=== PATIENT | male | born 1955 | race Caucasian/White ===

== ENCOUNTER 2019-03-12 07:15 | Day surgery (SDC) | payer OTHER ==
[2019-03-11 15:55] VITALS: BMI 29.5
[~2019-03-12 07:15] MED LIST: Fluorouracil 100 MG, Enoxaparin Sodium 25 MG, EPINEPHrine 0.3 MG in Ophthalmic Irrigati... IRR SCH
[2019-03-12] MEDS ORDERED: Phenylephrine 2.5% Ophth Soln 5 ML BOT ONE (07:34)
[2019-03-12] MEDS ORDERED: Cyclopentolate 1% Opth Drop 2 ML BOT ONE (07:34)
[2019-03-12] MEDS ORDERED: Midazolam HCl 2 mg/2 ml Vial ONE (09:39)
[2019-03-12] MEDS ORDERED: PROPOFOL 20 ML ONE (09:39)
[2019-03-12] MEDS ORDERED: Fentanyl 100 MCG/2 ML VIAL ONE (09:39)
--- NOTE | 2019-03-12 17:04 | OP ---
DATE OF PROCEDURE: 03/12/2019 PREOPERATIVE DIAGNOSIS: Rhegmatogenous retinal detachment, left eye. POSTOPERATIVE DIAGNOSIS: Rhegmatogenous retinal detachment, left eye. PROCEDURE PERFORMED: Pars plana vitrectomy, retinal detachment repair, left eye. ANESTHESIA: Local monitored anesthesia care. DESCRIPTION OF PROCEDURE: The patient was identified in the preoperative holding area. Appropriate informed consent for the planned surgical procedure on the left eye had been obtained. The patient was transported to the operative suite, where appropriate cardiopulmonary monitoring was established. Local anesthesia was obtained using retrobulbar-modified Van Lint lid block using 50:50 mixture of 4% lidocaine and 0.75% bupivacaine. The patient was prepped and draped in usual sterile manner for ophthalmic surgery. Left eye lid speculum was placed in the left eye. A 25-gauge trocar was placed through the conjunctiva and sclera superotemporally, inferotemporally, and supranasally. Infusion line was placed inferotemporally. Light pipe and vitreous cutter were inserted into the eye. Core vitrectomy was performed. Tear was found at the 2 o'clock position. Peripheral retinal tear was marked. Posterior drained retinotomy was created. Complete air-fluid exchange was performed with 10 minutes being left for fluid to drain posteriorly. A 360 laser was placed using Endolaser delivery device. A 28% sulfur hexafluoride gas was infused into the eye. Trocars were removed, and all 3 sclerotomies were suture closed with 6-0 plain gut suture. Retrobulbar Kenalog and subconjunctival Ancef were placed. Antibiotic ointment was placed and the eye was patched and shielded. The patient was positioned left side down. Advised to call for pain not relieved by Tylenol. Follow up appointment with Dr. Reveles. Job ID: [id number]
== END 2019-03-12 11:50 | disposition home or self-care (01) ==
LOC: SDC 07:15
PROVIDERS: ATTEND Ophthalmology Retina Specialist
PROC: 08T53ZZ Resection of Left Vitreous, Percutaneous Approach (ICD-10-PCS; principal; 2019-03-12)
PROC: 08QF3ZZ Repair Left Retina, Percutaneous Approach (ICD-10-PCS; principal; 2019-03-12)
DX: H33.002 Unspecified retinal detachment with retinal break, left eye (principal); Z79.84 Long term (current) use of oral hypoglycemic drugs; Z79.899 Other long term (current) drug therapy
CPT/HCPCS: 67025; J0171; J1650; J2250; J2704; J3010; J9190

== ENCOUNTER 2021-04-10 07:55 | Outpatient (CLI) | payer MEDICARE, OTHER ==
[2021-04-10 19:42] LABS: SARS-CoV-2 PCR by NAA Not Detected (NotDetected)
== END 2021-04-10 07:56 | disposition home or self-care (01) ==
LOC: LABBT 07:55
PROVIDERS: ATTEND Ophthalmology Retina Specialist
DX: Z01.812 Encounter for preprocedural laboratory examination (principal); H35.372 Puckering of macula, left eye; Z20.822 Contact with and (suspected) exposure to COVID-19
CPT/HCPCS: U0003; U0005

== ENCOUNTER 2021-04-13 06:47 | Day surgery (SDC) | payer MEDICARE, OTHER ==
[2021-04-13] MEDS ORDERED: Phenylephrine 2.5% Ophth Soln 5 ML BOT ONE (06:55)
[2021-04-13] MEDS ORDERED: Cyclopentolate 1% Opth Drop 2 ML BOT ONE (06:55)
[2021-04-13] MEDS ORDERED: Midazolam HCl 2 mg/2 ml Vial ONE (08:15)
[2021-04-13] MEDS ORDERED: Fentanyl 100 MCG/2 ML VIAL ONE (08:15)
[2021-04-13] MEDS ORDERED: PROPOFOL 20 ML ONE (08:15)
[2021-04-13] MEDS ORDERED: Triamcinolone 40 MG/ML VIAL ONE (08:26)
[2021-04-13] MEDS ORDERED: Maxitrol 0.1% Opth Oint 3.5 GM TUBE ONE (08:26)
[2021-04-13] MEDS ORDERED: CEFAZOLIN 1 GM VIAL ONE (08:26)
[2021-04-13] MEDS ORDERED: Bupivacaine PF 0.75% SDV 10 ML ONE (08:26)
[2021-04-13] MEDS ORDERED: PROPOFOL 200 MG/20 ML VIAL ONE (08:26)
[2021-04-13] MEDS ORDERED: Lidocaine 1% PF 5 ML VIAL ONE (08:26)
[2021-04-13] MEDS ORDERED: Lidocaine 4% PF 5 ML AMP ONE (08:26)
[2021-04-13] MEDS ORDERED: hydrALAZINE 20 MG/ML VIAL ONE (09:56)
== END 2021-04-13 10:00 | disposition home or self-care (01) ==
LOC: SDC 06:47
PROVIDERS: ATTEND Ophthalmology Retina Specialist
PROC: 08T53ZZ Resection of Left Vitreous, Percutaneous Approach (ICD-10-PCS; principal; 2021-04-13)
PROC: 08NF3ZZ Release Left Retina, Percutaneous Approach (ICD-10-PCS; 2021-04-13)
DX: H35.372 Puckering of macula, left eye (principal); Z79.899 Other long term (current) drug therapy
CPT/HCPCS: J0171; J0360; J0690; J1650; J2250; J2704; J3010; J3301; J3490; J9190

== ENCOUNTER 2021-06-22 | Day surgery (SDC) | payer MEDICARE, OTHER | END 2021-06-22 09:47 | disposition home or self-care (01) | PROC: 08T53ZZ Resection of Left Vitreous, Percutaneous Approach (ICD-10-PCS; principal; 2021-06-22) ==

== ENCOUNTER 2021-07-31 22:21 | Inpatient (IN) | payer MEDICARE, OTHER ==
[2021-08-01 02:23] VITALS: BMI 29.5
[2021-08-01] MEDS ORDERED: Morphine 4 MG/ML VIAL SLOW IVP PRN (04:19)
[2021-08-01] MEDS ORDERED: HumaLOG 300 UNITS/3 ML VIAL SC PRN ×2 (04:45)
[2021-08-01] MEDS ORDERED: Dextrose 50% Abboject 50 ML SYRINGE SLOW IVP PRN (04:45)
[2021-08-01] MEDS ORDERED: Dextrose 5% in Water 1,000 ML IV PRN (04:45)
[2021-08-01] MEDS ORDERED: Piperacillin/Tazobactam 3.375 GM in Sodium Chloride 0.9% 100 ML IVPB SCH (05:00)
[2021-08-01] MEDS: Morphine 4 MG/ML VIAL SLOW IVP PRN ×3 (05:23→16:46)
[2021-08-01] MEDS: Sodium Chloride 0.9% 1,000 ML IV SCH ×4 (05:24→20:19)
[2021-08-01 06:16] LABS: #Eosinphils 0.1 thou/uL (0.0-0.7); #Lymphocytes 1.2 thou/uL (1.20-3.40); #Monocytes 0.8 thou/uL (0.11-0.59); #Neutrophils 6.4 thou/uL (1.40-6.50); %Basophils 0.5 % (0.0-1.0); %Eosinophils 1.2 % (0.0-10.0); %Lymphocytes 14.3 % (21.0-51.0); %Monocytes 9.7 % (0.0-10.0); %Neutrophils 74.3 % (42.0-75.0); Hemoglobin 15.7 g/dL (14.0-18.0); Mean Corpuscular HGB CONC 34.5 g/dL (32.0-36.0); Mean Corpuscular Hemoglobin 30.3 pg (27.0-31.0); Mean Corpuscular Volume 87.9 fL (78.0-98.0); Mean Platelet Volume 7.7 fL (7.4-10.4); Platelet Count 171 thou/uL (130-400); Red Blood Cell (RBC) Count 5.19 mill/uL (4.70-6.10); White Blood Cell (WBC) Count 8.6 thou/uL (4.8-10.8)
[2021-08-01 06:24] LABS: INR-International Normal Ratio 1.1; Prothrombin Time 13.9 sec (12.0-14.7)
[2021-08-01 06:37] LABS: ALT (SGPT) 8 U/L (8-55); AST (SGOT) 12 U/L (5-34); Albumin 3.5 g/dL (3.4-4.8); Alkaline Phosphatase 67 U/L (40-110); Anion Gap 16 mmol/L (10-20); BUN (Urea Nitrogen) 15 mg/dL (8.4-25.7); Bilirubin, Total 2.5 mg/dL (0.2-1.2); Calc. Creatinine Clearance 70 mL/min (70-130); Calcium 8.1 mg/dL (7.8-10.44); Carbon Dioxide 21 mmol/L (23-31); Cardiac Risk 4.4 (Less than 4.5); Chloride 106 mmol/L (98-107); Cholesterol 122 mg/dl (< 200 Desired); Globulin 2.3 g/dL (2.4-3.5); Glucose 123 mg/dL (80-115); HDL Cholesterol 28 mg/dL (>60 Neg Risk); LDL Cholesterol, Calculated 69 mg/dL; Potassium 3.9 mmol/L (3.5-5.1); Protein, Total 5.8 g/dL (5.8-8.1); Sodium 139 mmol/L (136-145); Triglycerides 124 mg/dL (Less than 150)
[2021-08-01 06:38] LABS: Hemoglobin A1c 5.3 % (4.0-6.0)
[2021-08-01] MEDS ORDERED: Famotidine/PF 20 mg/2ml Vial SLOW IVP SCH (09:00)
[2021-08-01] MEDS: Piperacillin/Tazobactam 3.375 GM in Sodium Chloride 0.9% 100 ML IVPB SCH ×2 (14:19→21:03)
[2021-08-01] MEDS ORDERED: Sodium Chloride 0.9% 1,000 ML IV SCH (14:45)
[2021-08-01] MEDS ORDERED: Octreotide Acetate 1,250 MCG in Sodium Chloride 0.9% 250 ML 250 ML IVPB SCH (14:45)
[2021-08-01] MEDS ORDERED: cefOXitin Sodium/Dextrose,Iso 2 GM in Premix Bag 1 BAG IVPB SCH (16:00)
[2021-08-01] MEDS: hydrALAZINE 20 MG/ML VIAL SLOW IVP PRN (17:10)
[2021-08-01 17:50] LABS: #Eosinphils 0.1 thou/uL (0.0-0.7); #Lymphocytes 1.2 thou/uL (1.20-3.40); #Monocytes 0.9 thou/uL (0.11-0.59); #Neutrophils 6.4 thou/uL (1.40-6.50); %Basophils 0.2 % (0.0-1.0); %Eosinophils 1.2 % (0.0-10.0); %Lymphocytes 14.4 % (21.0-51.0); %Monocytes 10.7 % (0.0-10.0); %Neutrophils 73.5 % (42.0-75.0); Hemoglobin 15.1 g/dL (14.0-18.0); Mean Corpuscular HGB CONC 33.1 g/dL (32.0-36.0); Mean Corpuscular Hemoglobin 29.5 pg (27.0-31.0); Mean Platelet Volume 7.9 fL (7.4-10.4); Platelet Count 163 thou/uL (130-400); RBC Distribution Width 12.1 % (11.5-14.5); Red Blood Cell (RBC) Count 5.13 mill/uL (4.70-6.10); White Blood Cell (WBC) Count 8.6 thou/uL (4.8-10.8)
[2021-08-01] MEDS ORDERED: Sodium Chloride 0.9% (PF) 10 ML VIAL FS PRN (18:00)
[2021-08-01] MEDS ORDERED: Nitroglycerin 2% Ointment 1 INCH/1 GM Packet TOP PRN (18:20)
[2021-08-01] MEDS: Pantoprazole 40 MG VIAL IVP SCH (18:23)
[2021-08-01] MEDS: Ondansetron PF 4 MG/2 ML Vial IVP PRN (21:51)
[2021-08-02] MEDS: hydrALAZINE 20 MG/ML VIAL SLOW IVP PRN ×2 (04:41→20:33)
[2021-08-02] MEDS: Sodium Chloride 0.9% 1,000 ML IV SCH ×2 (04:41→18:52)
[2021-08-02] MEDS: Piperacillin/Tazobactam 3.375 GM in Sodium Chloride 0.9% 100 ML IVPB SCH ×3 (05:08→20:21)
[2021-08-02] MEDS: Morphine 4 MG/ML VIAL SLOW IVP PRN ×2 (05:09→08:25)
[2021-08-02] MEDS: Ondansetron PF 4 MG/2 ML Vial IVP PRN (07:31)
[2021-08-02] MEDS ORDERED: Midazolam HCl 2 mg/2 ml Vial ONE ×3 (10:28→16:22)
[2021-08-02] MEDS ORDERED: Fentanyl 100 MCG/2 ML VIAL ONE ×4 (10:28→17:50)
[2021-08-02] MEDS ORDERED: Phenylephrine 10 MG/ML VIAL ONE (13:27)
[2021-08-02] MEDS ORDERED: Piperacillin/Tazobactam 3.375 GM VIAL ONE (13:27)
[2021-08-02] MEDS ORDERED: Fentanyl 250 MCG/5 ML VIAL ONE (13:27)
[2021-08-02] MEDS ORDERED: Sodium Chloride 0.9% 100 ML ONE (13:27)
[2021-08-02] MEDS ORDERED: PROPOFOL 200 MG/20 ML VIAL ONE (13:55)
[2021-08-02] MEDS ORDERED: Ondansetron PF 4 MG/2 ML Vial ONE (13:55)
[2021-08-02] MEDS ORDERED: Rocuronium Bromide 10 MG/ML (10ML VIAL) ONE (13:55)
[2021-08-02] MEDS ORDERED: Glycopyrrolate 0.2 MG/ML 5 ML SYRINGE ONE (13:55)
[2021-08-02] MEDS ORDERED: Dexamethasone 20 MG/5 ML VIAL ONE (13:55)
[2021-08-02] MEDS ORDERED: Lidocaine 1% PF 5 ML VIAL ONE (13:55)
[2021-08-02] MEDS ORDERED: HYDROmorphone 2 MG/ML VIAL ONE (15:44)
[2021-08-02] MEDS ORDERED: hydrALAZINE 20 MG/ML VIAL SLOW IVP PRN (16:04)
[2021-08-02] MEDS ORDERED: Promethazine HCl 25 MG/ML VIAL IM PRN ×2 (16:04→16:20)
[2021-08-02] MEDS ORDERED: Ondansetron PF 4 MG/2 ML Vial IVP PRN ×2 (16:04→16:27)
[2021-08-02] MEDS ORDERED: Morphine 4 MG/ML VIAL SLOW IVP PRN (16:09)
[2021-08-02] MEDS ORDERED: Promethazine HCl 25 MG/ML VIAL IVPB PRN (16:20)
[2021-08-02] MEDS ORDERED: Ondansetron HCl/PF 4 MG/2 ML Vial IVP PRN (16:20)
[2021-08-02] MEDS ORDERED: HYDROmorphone 2 MG/ML VIAL SLOW IVP PRN (16:20)
[2021-08-02] MEDS ORDERED: Ketorolac Tromethamine 30 MG/ML VIAL IVP PRN (16:20)
[2021-08-02] MEDS ORDERED: diphenhydrAMINE 25 MG CAP PO PRN (16:27)
[2021-08-02] MEDS ORDERED: diphenhydrAMINE 50 MG/ML VIAL IM PRN (16:27)
[2021-08-02] MEDS ORDERED: diphenhydrAMINE 50 MG/ML VIAL IVP PRN (16:27)
[2021-08-02] MEDS ORDERED: Naloxone HCl 0.4 mg/ml Vial IV PRN (16:27)
[2021-08-02] MEDS ORDERED: Communication Order-Pharmacy FS SCH (16:30)
[2021-08-02] MEDS ORDERED: Labetalol HCl 100 MG/20 ML VIAL ONE (17:04)
[2021-08-02] MEDS: cefOXitin 2 GM in Sodium Chloride 0.9% 100 ML IVPB SCH (18:52)
[2021-08-02 18:53] LABS: #Lymphocytes 0.7 thou/uL (1.20-3.40); #Monocytes 0.9 thou/uL (0.11-0.59); #Neutrophils 12.4 thou/uL (1.40-6.50); %Basophils 0.1 % (0.0-1.0); %Eosinophils 0.2 % (0.0-10.0); %Lymphocytes 4.6 % (21.0-51.0); %Monocytes 6.6 % (0.0-10.0); %Neutrophils 88.5 % (42.0-75.0); Hemoglobin 16.4 g/dL (14.0-18.0); Mean Corpuscular HGB CONC 33.8 g/dL (32.0-36.0); Mean Corpuscular Hemoglobin 30.5 pg (27.0-31.0); Mean Corpuscular Volume 90.3 fL (78.0-98.0); Mean Platelet Volume 9.1 fL (7.4-10.4); Platelet Count 112 thou/uL (130-400); RBC Distribution Width 12.2 % (11.5-14.5); Red Blood Cell (RBC) Count 5.38 mill/uL (4.70-6.10)
[2021-08-02 19:08] LABS: Anion Gap 15 mmol/L (10-20); BUN (Urea Nitrogen) 9 mg/dL (8.4-25.7); Calc. Creatinine Clearance 82 mL/min (70-130); Calcium 7.9 mg/dL (7.8-10.44); Carbon Dioxide 18 mmol/L (23-31); Chloride 106 mmol/L (98-107); Glucose 181 mg/dL (80-115); Potassium 4.1 mmol/L (3.5-5.1); Sodium 135 mmol/L (136-145)
[2021-08-02] MEDS: Ketorolac Tromethamine 30 MG/ML VIAL IVP SCH (20:19)
[2021-08-02] MEDS: Pantoprazole 40 MG VIAL IVP SCH (20:20)
[2021-08-02] MEDS ORDERED: Famotidine/PF 20 mg/2ml Vial SLOW IVP SCH (21:00)
[2021-08-02] MEDS ORDERED: Famotidine 20 MG TAB PO SCH (21:00)
[2021-08-03] MEDS: cefOXitin 2 GM in Sodium Chloride 0.9% 100 ML IVPB SCH (00:23)
[2021-08-03] MEDS: Ketorolac Tromethamine 30 MG/ML VIAL IVP SCH ×4 (00:45→17:23)
[2021-08-03] MEDS: Sodium Chloride 0.9% 1,000 ML IV SCH ×3 (02:52→13:47)
[2021-08-03] MEDS: Piperacillin/Tazobactam 3.375 GM in Sodium Chloride 0.9% 100 ML IVPB SCH ×3 (05:35→21:04)
[2021-08-03 06:06] LABS: #Lymphocytes 0.9 thou/uL (1.20-3.40); #Monocytes 1.3 thou/uL (0.11-0.59); #Neutrophils 9.9 thou/uL (1.40-6.50); %Eosinophils 0.2 % (0.0-10.0); %Lymphocytes 7.5 % (21.0-51.0); %Monocytes 10.4 % (0.0-10.0); %Neutrophils 81.8 % (42.0-75.0); Hemoglobin 14.2 g/dL (14.0-18.0); Mean Corpuscular HGB CONC 32.9 g/dL (32.0-36.0); Mean Corpuscular Hemoglobin 29.3 pg (27.0-31.0); Platelet Count 179 thou/uL (130-400); RBC Distribution Width 12.2 % (11.5-14.5); Red Blood Cell (RBC) Count 4.86 mill/uL (4.70-6.10); White Blood Cell (WBC) Count 12.1 thou/uL (4.8-10.8)
[2021-08-03 06:14] LABS: Anion Gap 13 mmol/L (10-20); BUN (Urea Nitrogen) 10 mg/dL (8.4-25.7); Calc. Creatinine Clearance 84 mL/min (70-130); Carbon Dioxide 23 mmol/L (23-31); Chloride 103 mmol/L (98-107); Glucose 132 mg/dL (80-115); Potassium 3.9 mmol/L (3.5-5.1); Sodium 135 mmol/L (136-145)
[2021-08-03] MEDS: Enoxaparin Sodium 40 MG/0.4 ML SYRINGE SC SCH (09:56)
[2021-08-03] MEDS: Ondansetron PF 4 MG/2 ML Vial IVP PRN (17:23)
[2021-08-03] MEDS: Pantoprazole 40 MG VIAL IVP SCH (17:25)
[2021-08-03 17:51] LABS: Bilirubin Negative (Negative); Blood, Urine 2+ (Negative); Clarity Clear (Clear); Glucose, Urine (Dipstick) Normal (Negative); Ketone, Urine 60 mg/dL (Negative); Leukocyte 75 Leu/uL (Negative); Nitrite Negative (Negative); Protein, Urine (Dipstick) 50 mg/dL (Neg-Trace); Specific Gravity, Urine 1.032 (1.002-1.036); Squamous Epithelial 0-3 HPF (0-3); Urobilinogen Normal mg/dL (Less than 2)
[2021-08-03 17:58] LABS: Bacteria/HPF 1+ HPF (None Seen)
[2021-08-03 18:01] LABS: Urine Culture Reflex Yes Yes
[2021-08-04] MEDS: Ketorolac Tromethamine 30 MG/ML VIAL IVP SCH ×4 (00:27→18:07)
[2021-08-04] MEDS: Sodium Chloride 0.9% 1,000 ML IV SCH ×4 (04:12→22:01)
[2021-08-04] MEDS: Piperacillin/Tazobactam 3.375 GM in Sodium Chloride 0.9% 100 ML IVPB SCH ×3 (05:22→22:00)
[2021-08-04] MEDS: fentaNYL Citrate/PF 2,000 MCG in Sodium Chloride 0.9% 60 ML IV PRN (05:28)
[2021-08-04 06:03] LABS: #Eosinphils 0.2 thou/uL (0.0-0.7); #Lymphocytes 1.1 thou/uL (1.20-3.40); #Neutrophils 7.8 thou/uL (1.40-6.50); %Basophils 0.3 % (0.0-1.0); %Eosinophils 1.8 % (0.0-10.0); %Monocytes 9.6 % (0.0-10.0); %Neutrophils 77.3 % (42.0-75.0); Hemoglobin 13.9 g/dL (14.0-18.0); Mean Corpuscular HGB CONC 34.9 g/dL (32.0-36.0); Mean Corpuscular Hemoglobin 31.5 pg (27.0-31.0); Mean Corpuscular Volume 90.4 fL (78.0-98.0); Mean Platelet Volume 7.5 fL (7.4-10.4); Platelet Count 166 thou/uL (130-400); RBC Distribution Width 11.9 % (11.5-14.5); Red Blood Cell (RBC) Count 4.42 mill/uL (4.70-6.10); White Blood Cell (WBC) Count 10.1 thou/uL (4.8-10.8)
[2021-08-04] MEDS: Enoxaparin Sodium 40 MG/0.4 ML SYRINGE SC SCH (08:55)
[2021-08-04] MEDS: hydrALAZINE 20 MG/ML VIAL SLOW IVP PRN ×2 (12:01→18:08)
[2021-08-04] MEDS ORDERED: Bisacodyl 10 MG SUPP PR PRN (15:23)
[2021-08-04] MEDS ORDERED: Bisacodyl 10 MG SUPP PR SCH (15:30)
[2021-08-04] MEDS: Labetalol HCl 100 MG/20 ML VIAL SLOW IVP PRN ×2 (16:29→22:22)
[2021-08-04] MEDS: Pantoprazole 40 MG VIAL IVP SCH (18:08)
[2021-08-05] MEDS: Ketorolac Tromethamine 30 MG/ML VIAL IVP SCH ×5 (00:05→17:31)
[2021-08-05] MEDS: Piperacillin/Tazobactam 3.375 GM in Sodium Chloride 0.9% 100 ML IVPB SCH (06:02)
[2021-08-05] MEDS: Sodium Chloride 0.9% 1,000 ML IV SCH (06:04)
[2021-08-05] MEDS ORDERED: Bisacodyl 10 MG SUPP PR SCH (08:45)
[2021-08-05] MEDS ORDERED: Sodium Chloride 0.9% 1,000 ML IV SCH (08:45)
[2021-08-05] MEDS: Enoxaparin Sodium 40 MG/0.4 ML SYRINGE SC SCH (09:14)
[2021-08-05] MEDS: fentaNYL Citrate/PF 2,000 MCG in Sodium Chloride 0.9% 60 ML IV PRN (09:50)
[2021-08-05] MEDS: Pantoprazole 40 MG VIAL IVP SCH (17:31)
[2021-08-05] MEDS: Labetalol HCl 100 MG/20 ML VIAL SLOW IVP PRN (22:30)
[2021-08-06] MEDS: hydrALAZINE 20 MG/ML VIAL SLOW IVP PRN (06:12)
[2021-08-06] MEDS ORDERED: Losartan 25 MG TAB PO SCH (07:45)
[2021-08-06] MEDS: Carvedilol 6.25 MG TAB PO SCH ×2 (09:04→18:04)
[2021-08-06] MEDS: Enoxaparin Sodium 40 MG/0.4 ML SYRINGE SC SCH (09:04)
[2021-08-06] MEDS: Pantoprazole 40 MG VIAL IVP SCH (18:09)
[2021-08-06] MEDS: Acetaminophen 325 MG TAB PO PRN (19:54)
[2021-08-07] MEDS: Labetalol HCl 100 MG/20 ML VIAL SLOW IVP PRN (06:15)
[2021-08-07 07:21] VITALS: BP 170/96; TEMP 98.4
[2021-08-07] MEDS ORDERED: Carvedilol 25 MG TAB PO SCH (08:00)
[2021-08-07] MEDS ORDERED: Losartan 25 MG TAB PO SCH (09:00)
[2021-08-07] MEDS: Enoxaparin Sodium 40 MG/0.4 ML SYRINGE SC SCH (09:09)
[2021-08-07] MEDS: Acetaminophen 325 MG TAB PO PRN (09:09)
[2021-08-08 11:38] LABS: 5 HIAA,Urine 5.2 mg/L (Undefined); 5 HIAA-24H Urine 7.8 mg/24 hr (0.0-14.9)
== END 2021-08-07 10:33 | disposition home or self-care (01) | DRG 330 ==
LOC: T4-A 22:21 → SURG A 08-02 18:30
PROVIDERS: ADMIT Student in an Organized Health Care Education/Training Program; ATTEND Internal Medicine
PROC: 0DB80ZZ Excision of Small Intestine, Open Approach (ICD-10-PCS; principal; 2021-07-31)
PROC: 0D9670Z Drainage of Stomach with Drainage Device, Via Natural or Artificial Opening (ICD-10-PCS; 2021-07-31)
DX: D3A.012 Benign carcinoid tumor of the ileum (principal); K56.7 Ileus, unspecified; J98.11 Atelectasis; K57.92 Diverticulitis of intestine, part unspecified, without perforation or abscess without bleeding; N17.9 Acute kidney failure, unspecified; K92.0 Hematemesis; I16.0 Hypertensive urgency; I10 Essential (primary) hypertension; E11.9 Type 2 diabetes mellitus without complications; Z79.84 Long term (current) use of oral hypoglycemic drugs; Z79.899 Other long term (current) drug therapy; Z90.49 Acquired absence of other specified parts of digestive tract
CPT/HCPCS: 36415; 36416; 71045; 74018; 80048; 80053; 80061; 81001; 83036; 83497; 84260; 84484; 85025; 85610; 87086; 88307; 88309; 88341; 88342; 93005; 93010; C9113; J0360; J0694; J1100; J1170; J1650; J1885; J2250; J2270; J2354; J2370; J2405; J2543; J2704; J3010; J3490; J7050; S0028

== ENCOUNTER 2021-08-21 15:45 | Outpatient (CLI) | payer MEDICARE, OTHER ==
[2021-08-22 00:09] LABS: SARS-CoV-2 PCR by NAA Not Detected (NotDetected)
== END 2021-08-21 15:46 | disposition home or self-care (01) ==
LOC: LABBT 15:45
PROVIDERS: ATTEND Ophthalmology Retina Specialist
DX: Z01.812 Encounter for preprocedural laboratory examination (principal); Z20.822 Contact with and (suspected) exposure to COVID-19
CPT/HCPCS: U0003; U0005

== ENCOUNTER 2021-08-24 07:19 | Day surgery (SDC) | payer MEDICARE, OTHER ==
[2021-08-23 13:03] VITALS: BMI 28.0
[~2021-08-24 07:19] MED LIST changes: +Fentanyl 100 MCG/2 ML VIAL ONE; +Midazolam HCl 2 mg/2 ml Vial ONE
[2021-08-24] MEDS ORDERED: Phenylephrine 2.5% Ophth Soln 5 ML BOT ONE (07:38)
[2021-08-24] MEDS ORDERED: Cyclopentolate 1% Opth Drop 2 ML BOT ONE (07:38)
[2021-08-24] MEDS ORDERED: Famotidine/PF 20 mg/2ml Vial ONE (08:00)
[2021-08-24] MEDS ORDERED: Lidocaine 4% PF 5 ML AMP ONE (09:19)
[2021-08-24] MEDS ORDERED: Triamcinolone 40 MG/ML VIAL ONE (09:19)
[2021-08-24] MEDS ORDERED: PROPOFOL 200 MG/20 ML VIAL ONE (09:19)
[2021-08-24] MEDS ORDERED: Ondansetron PF 4 MG/2 ML Vial ONE (09:19)
[2021-08-24] MEDS ORDERED: PHENYLEPHRINE-NS 100 MCG/ML 10 ML SYRINGE ONE (09:19)
[2021-08-24] MEDS ORDERED: CEFAZOLIN 1 GM VIAL ONE (09:19)
[2021-08-24] MEDS ORDERED: Enoxaparin Sodium 30 MG/0.3 ML SYRINGE ONE (09:19)
[2021-08-24] MEDS ORDERED: Bupivacaine PF 0.75% SDV 10 ML ONE (09:19)
[2021-08-24] MEDS ORDERED: Lidocaine 1% PF 5 ML VIAL ONE ×2 (09:19)
[2021-08-24] MEDS ORDERED: ePHEDrine 50 MG/ML VIAL ONE (09:19)
[2021-08-24] MEDS ORDERED: Maxitrol 0.1% Opth Oint 3.5 GM TUBE ONE (09:19)
[2021-08-24] MEDS ORDERED: Metoclopramide HCl 10 MG/2 ML VIAL ONE (09:19)
[2021-08-24] MEDS ORDERED: hydrALAZINE 20 MG/ML VIAL ONE (10:49)
== END 2021-08-24 13:20 | disposition home or self-care (01) ==
LOC: SDC 07:19
PROVIDERS: ATTEND Ophthalmology Retina Specialist
PROC: 08T53ZZ Resection of Left Vitreous, Percutaneous Approach (ICD-10-PCS; principal; 2021-08-24)
DX: H33.022 Retinal detachment with multiple breaks, left eye (principal); Z79.84 Long term (current) use of oral hypoglycemic drugs; Z79.899 Other long term (current) drug therapy
CPT/HCPCS: 67108; C1814; J0171; J0360; J0690; J1650; J2250; J2405; J2704; J2765; J3010; J3301; J3490; J9190; S0028

== ENCOUNTER 2021-12-11 11:57 | Outpatient (CLI) | payer MEDICARE, OTHER ==
[2021-12-11 21:50] LABS: SARS-CoV-2 PCR by NAA Not Detected (NotDetected)
== END 2021-12-11 11:58 | disposition home or self-care (01) ==
LOC: LABBT 11:57
PROVIDERS: ATTEND Ophthalmology Retina Specialist
DX: Z01.812 Encounter for preprocedural laboratory examination (principal); H43.392 Other vitreous opacities, left eye; Z20.822 Contact with and (suspected) exposure to COVID-19
CPT/HCPCS: U0003; U0005

== ENCOUNTER 2021-12-14 06:07 | Day surgery (SDC) | payer MEDICARE, OTHER ==
[2021-12-12 12:30] VITALS: BMI 28.8
[~2021-12-14 06:07] MED LIST changes: +EPINEPHrine 0.3 MG in Ophthalmic Irrigation Solution 500 ML IRR SCH; -Fentanyl 100 MCG/2 ML VIAL ONE; -Fluorouracil 100 MG, Enoxaparin Sodium 25 MG, EPINEPHrine 0.3 MG in Ophthalmic Irrigati... IRR SCH; -Midazolam HCl 2 mg/2 ml Vial ONE
[2021-12-14] MEDS ORDERED: Cyclopentolate 1% Opth Drop 2 ML BOT ONE (06:32)
[2021-12-14] MEDS ORDERED: Phenylephrine 2.5% Ophth Soln 5 ML BOT ONE (06:32)
[2021-12-14] MEDS ORDERED: PROPOFOL 20 ML ONE (06:35)
[2021-12-14] MEDS ORDERED: Fentanyl 250 MCG/5 ML VIAL ONE (06:35)
[2021-12-14] MEDS ORDERED: Midazolam HCl 2 mg/2 ml Vial ONE (06:35)
[2021-12-14] MEDS ORDERED: Acetaminophen 500 MG TAB ONE (06:53)
[2021-12-14 07:33] LABS: SARS-CoV-2 NAA Rapid Test Not Detected (NotDetected)
[2021-12-14] MEDS ORDERED: Famotidine/PF 20 mg/2ml Vial ONE (09:11)
[2021-12-14] MEDS ORDERED: PHENYLEPHRINE-NS 100 MCG/ML 10 ML SYRINGE ONE (09:43)
[2021-12-14] MEDS ORDERED: Metoclopramide HCl 10 MG/2 ML VIAL ONE (09:43)
[2021-12-14] MEDS ORDERED: Ondansetron PF 4 MG/2 ML Vial ONE (09:43)
[2021-12-14] MEDS ORDERED: ePHEDrine 50 MG/ML VIAL ONE (09:43)
[2021-12-14] MEDS ORDERED: Lidocaine 4% PF 5 ML AMP ONE (09:43)
[2021-12-14] MEDS ORDERED: Bupivacaine PF 0.75% SDV 10 ML ONE (09:43)
[2021-12-14] MEDS ORDERED: Lidocaine 1% PF 5 ML VIAL ONE ×2 (09:43)
[2021-12-14] MEDS ORDERED: CEFAZOLIN 1 GM VIAL ONE (09:43)
[2021-12-14] MEDS ORDERED: Triamcinolone 40 MG/ML VIAL ONE (09:43)
[2021-12-14] MEDS ORDERED: Maxitrol 0.1% Opth Oint 3.5 GM TUBE ONE (09:43)
== END 2021-12-14 10:50 | disposition home or self-care (01) ==
LOC: SDC 06:07
PROVIDERS: ATTEND Ophthalmology Retina Specialist
PROC: 08T53ZZ Resection of Left Vitreous, Percutaneous Approach (ICD-10-PCS; principal; 2021-12-14)
PROC: 08NF3ZZ Release Left Retina, Percutaneous Approach (ICD-10-PCS; 2021-12-14)
DX: H43.392 Other vitreous opacities, left eye (principal); Z79.899 Other long term (current) drug therapy; Z96.1 Presence of intraocular lens; Z20.822 Contact with and (suspected) exposure to COVID-19
CPT/HCPCS: 67041; U0002; J0171; J0690; J2250; J2405; J2704; J2765; J3010; J3301; J3490; S0028